=== PATIENT | male | born 1955 | race Caucasian/White ===

== ENCOUNTER 2024-06-02 06:49 | Day surgery (SDC) | payer MEDICARE, SELFPAY ==
[2024-05-12 11:25] LABS: Hematocrit 41.3 % (39.0-52.0); Hemoglobin 15.2 g/dL (13.0-18.0); Mean Corp Hgb Conc. 36.8 g/dL (33.0-37.0); Mean Corpuscular Hgb 33.9 pg (27.0-31.0); Platelet Count 141 10^3/uL (130-400); Red Blood Cell Count 4.49 10^6/uL (4.70-6.10); Red Cell Dist. Width 11.8 % (11.5-14.5); White Blood Cell Count 4.1 10^3/uL (4.8-10.8)
[2024-05-12 11:36] LABS: Blood Urea Nitrogen 22 mg/dl (9-20); Calcium 9.4 mg/dl (8.4-10.2); Carbon Dioxide 26 mmol/L (22-30); Chloride 107 mmol/L (98-107); Glucose 107 mg/dl (70-99); Potassium 4.3 mmol/L (3.5-5.1); Sodium 142 mmol/L (135-145); eGFR > 60.00
[2024-05-12 12:26] VITALS: BMI 29.7
[2024-06-02] VITALS (9 sets, daily range): BP systolic 111–125; BP diastolic 58–67; BMI 29.7
[2024-06-02] MEDS: TYLENOL 1000 MG PO (08:29)
--- NOTE | 2024-06-02 08:33 | HP.FOC2 ---
Focused History & Physical
Chief Complaint
HPI:
Chief Complaint: Right inguinal hernia
HPI / Indication for Planned Procedure: Patient is a 69-year-old male recently seen in outpatient surgical evaluation secondary to a few month history of right inguinal discomfort and swelling. Symptoms are exacerbated by physical activity.
Outpatient evaluation confirmed the presence of a reducible right inguinal hernia. CT imaging suggestive of a fat-containing left inguinal hernia but this was not detectable on examination.
Relevant Past Medical History: Other (High cholesterol, history of CAD with OK status post cardiac stent)
Relevant Social History: Negative
Relevant Family History: Negative
Relevant Past Surgical History: Positive for (Cardiac stents, bilateral cataracts)
Review of Systems
Review of Pertinent Systems: All Systems Negative
Medication
See Medication form for detailed medications: Yes
Medication List (including Herbals & OTC):
aspirin 81 mg chewable tablet (Kashif Chewable Low Dose Aspirin) 81 mg PO HS 02/18/20
atorvastatin 40 mg tablet 40 mg PO HS 02/18/20
coenzyme Q10 200 mg capsule (Co Q-10) 200 mg PO DAILY 02/18/20
evolocumab 140 mg/mL subcutaneous pen injector (Repatha SureClick) 140 mg SC Q2W 05/27/24
multivitamin 1 tab PO DAILY 05/27/24
omega 5-swr-mni-fish oil 1,000 mg (120 mg-180 mg) capsule (Fish Oil) 1 cap PO DAILY 05/27/24
Medications Reviewed: Yes
Allergies and Reactions
Patient has Allergies: Yes
Noted Allergies and Reactions:
Allergy/AdvReac Type Severity Reaction Status Date / Time
ezetimibe [From Vytorin] Allergy elevated Verified 06/02/24 08:28
CPK
simvastatin [From Vytorin] Allergy elevated Verified 06/02/24 08:28
CPK
Tetracyclines Allergy Anaphylaxis Verified 06/02/24 08:28
Pertinent Physical Exam
All Other Systems: Negative
Head/Neck: Normal
Lungs: Normal
Heart: Normal
Abdomen: Other (Reducible right inguinal hernia)
Extremities: Normal
Neurological: Normal
Diagnosis / Assessment
69-year-old male presenting for scheduled operative correction symptomatic right inguinal hernia; possible left inguinal hernia on imaging but not detectable on examination
Plan / Procedure
Robotic assisted laparoscopic repair of right inguinal hernia with mesh; possible left
Anesthesia/Sedation to be done by Anesthesia Provider: Yes
--- NOTE | 2024-06-02 08:35 | W.SUR.PREOP ---
Pre-Operative Surgical Note
-
I have examined this patient prior to the performance of the scheduled procedure.
The patient's condition is unchanged from the time of the current History and
Physical and the patient is able to undergo the scheduled procedure.
--- NOTE | 2024-06-02 11:16 | W.IMMPOSTOP ---
Addendum entered and electronically signed by Bj Mmcahan MD 06/02/24 11:42:
#[id number]
Original Note:
Surgical Immed Post Op Note
-
Primary Surgeon: Martir
Assisting Surgeon: Daria Gutierrez PA-C
Pre-op Diagnosis: Right inguinal hernia possible left
Post-op Diagnosis: Bilateral inguinal hernias; indirect
Procedure Performed: RAL TALI repair bilateral inguinal hernias with mesh; 3D max large mid weight
Anesthesia Type: GETA +0.25% Marcaine
Specimen / Cultures: None
Estimated Blood Loss: 6 mL
Complications: None immediate
Operative Findings: Right indirect inguinal hernia and lipoma of cord. Left indirect inguinal hernia and lipoma of cord. Cord lipoma was reduced and excised to facilitate mesh placement. 3D max large mid weight mesh x 2 secured to Socrates's
ligament and once at the midline; interrupted 2-0 Vicryl. Peritoneal flap closed with 2-0 Monocryl STRATAFIX spiral.
The assistance of Daria Gutierrez PA-C was required due to the complexity of the procedure. During the procedure Daria Gutierrez PA-C assisted with port placement, robotic instrumentation and suture material exchanges, and closure of the surgical incision
sites. I was present for the entirety of the operative procedure.
== END 2024-06-02 13:30 | disposition home or self-care (01) ==
LOC: SDS 06:49
PROVIDERS: ATTENDING PHYSICIAN Surgery; FAMILY PHYSICIAN Nurse Practitioner; OTHER PHYSICIAN Internal Medicine Interventional Cardiology
PROC: 0YUA4JZ Supplement Bilateral Inguinal Region with Synthetic Substitute, Percutaneous Endoscopic Approach (ICD-10-PCS; 2024-06-02)
PROC: 8E0W4CZ Robotic Assisted Procedure of Trunk Region, Percutaneous Endoscopic Approach (ICD-10-PCS; 2024-06-02)
DX: K40.20 Bilateral inguinal hernia, without obstruction or gangrene, not specified as recurrent (principal)
CPT/HCPCS: 49650; 36415; 80048; 85027; C1781